=== PATIENT | female | born 1970 | race African-American/Black ===

== ENCOUNTER 2019-10-01 07:29 | Emergency (ER) | payer MEDICARE, OTHER ==
[~2019-10-01] VITALS: Ht 177.8 cm; Wt 98.9 kg
[2019-10-01] MEDS ORDERED: LORAZEPAM 1 MG TABLET ONE (07:44)
[2019-10-01 08:00] LABS: BASOPHILS % (AUTO) 0.3 % (0.0-2.0); EOSINOPHILS % (AUTO) 1.4 % (0.0-6.0); HEMATOCRIT 38 % (33-45); HEMOGLOBIN 12.4 g/dL (11.5-14.8); LYMPHOCYTES # (AUTO) 1.8 /CMM (0.8-4.8); LYMPHOCYTES % (AUTO) 37.2 % (20.0-44.0); MEAN CORPUSCULAR HGB CONC 32 g/dl (31.0-36.0); MEAN CORPUSCULAR VOLUME 92 fL (82-100); MONOCYTES # (AUTO) 0.4 /CMM (0.1-1.30); MONOCYTES % (AUTO) 7.5 % (2.0-12.0); NEUTROPHILS # (AUTO) 2.6 /CMM (1.8-8.9); NEUTROPHILS % (AUTO) 53.6 % (43.0-81.0); PLATELET COUNT (AUTO) 198 /CMM (150-450); RED BLOOD CELL COUNT(AUTO) 4.17 MIL/uL (4.0-5.2); WHITE BLOOD COUNT (AUTO) 4.9 K/uL (4.3-11.0)
[2019-10-01] MEDS ORDERED: LORAZEPAM 1 MG TABLET PO ONE (08:00)
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
[2019-10-01 08:14] LABS: ALANINE AMINOTRANSFERASE 32 U/L (12-78); ALBUMIN 3.1 g/dL (3.4-5.0); ALCOHOL, BLOOD < 3 mg/dL (0-0); ALKALINE PHOSPHATASE 73 U/L (46-116); ASPARTATE AMINOTRANSFERASE 20 U/L (15-37); BILIRUBIN,DIRECT 0.1 mg/dL (0.0-0.2); BILIRUBIN,TOTAL 0.1 mg/dL (0.2-1.0); CALCIUM, SERUM 9.3 mg/dL (8.5-10.1); CARBON DIOXIDE 25 mmol/L (21-32); CHLORIDE 108 mmol/L (98-107); CREATININE 0.8 mg/dL (0.6-1.3); GLUCOSE 103 mg/dL (74-106); SALICYLATE 4.4 mg/dL (2.8-20.0); SODIUM SERUM 143 mmol/L (136-145); TOTAL PROTEIN, SERUM 7.1 g/dL (6.4-8.2); UREA NITROGEN, BLOOD 19 mg/dL (7-18)
[2019-10-01 08:15] LABS: ACETAMINOPHEN 0 ug/ml (10-30)
--- NOTE | 2019-10-01 08:15 | NUR ---
called security for wanding
[2019-10-01 08:16] LABS: APPEARANCE,URINE Clear (CLEAR); BILIRUBIN,URINE Negative (NEGATIVE); BLOOD, URINE Negative Ery/uL (NEGATIVE); COLOR,URINE Yellow (YELLOW); KETONES,URINE Negative (NEGATIVE); LEUKOCYTE ESTERASE ,URINE Negative (NEGATIVE); NITRITE, URINE Negative (NEGATIVE); PH,URINE 5.5 (5.0-8.0); PROTEIN,URINE Negative (NEGATIVE); UGLUCOSE Negative (NEGATIVE)
--- NOTE | 2019-10-01 08:16 | NUR ---
security at bedside for wanding
--- NOTE | 2019-10-01 08:17 | NUR ---
urine collected and sent to lab
[2019-10-01 11:35] VITALS: BP 141/77
--- NOTE | 2019-10-01 11:40 | NUR ---
[facility] ETA 1430 TRIP #[id number] Addendum: 10/01/19 at 1147 by APPLE CANCELED
--- NOTE | 2019-10-01 11:43 | NUR ---
REPORT GIVEN TO ZAYRA. AWAITING [facility] TRANSFER.
--- NOTE | 2019-10-01 11:45 | NUR ---
[facility] ETA 1230
--- NOTE | 2019-10-01 13:00 | NUR ---
PT TRANSFERED TO [place]. STABLE VITALS
== END 2019-10-01 13:30 ==
LOC: ER 07:30
DX: F19.10 Other psychoactive substance abuse, uncomplicated (principal); F20.9 Schizophrenia, unspecified; F41.9 Anxiety disorder, unspecified; F31.9 Bipolar disorder, unspecified; F29 Unspecified psychosis not due to a substance or known physiological condition
CPT/HCPCS: 36415; 80048; 80076; 80305; 80307; 80329; 81001; 85025; 99285; G0480; 81000-TC